=== PATIENT | male | born 1970 | race Caucasian/White ===

== ENCOUNTER 2018-01-16 23:54 | Inpatient (IN) ==
[2018-01-18 05:25] VITALS: BP 119/66
== END 2018-01-18 08:35 | disposition home or self-care (01) | DRG 918 ==
LOC: N.ED 23:54 → N.EDINP 01-17 03:18 → SUATTDRO 01-17 03:18 → N.2W 01-17 12:31 → N.TELES 01-17 14:33
PROVIDERS: ADMIT Internal Medicine Cardiovascular Disease; ATTEND Internal Medicine